=== PATIENT | female | born 1995 | race Caucasian/White ===

== ENCOUNTER 2021-03-20 23:24 | Emergency (ER) | payer BC, OTHER, MEDICAID ==
[~2021-03-20] VITALS: Ht 180.3 cm; Wt 70.0 kg
--- NOTE | 2021-03-20 23:58 | NUR ---
INITIAL PT CONTACT. PT PRESENTS TO ED C/O "NAUSEA, DIZZINESS, MUSCLES AND SHAKING ALL OVER." PT STATES SHE WAS HYPERVENTALATING AND THEN HER HANDS AND FEET WENT NUMB. PT VERY ANXIOUS AND TEARFUL IN ROOM. 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 PT ABLE TO CONVERSE APPROPRIATELY BUT LOOSES TRACK OF WHAT SHE IS SAYING AND NEEDS TO BE REMINDED OF WHAT WAS BEING SAID OR DISCUSSED. PT SITTING UPRIGHT ON GURNEY, PLACED ON CONTINUOUS MONITORING. CALL LIGHT AND PERSONAL BELONGINGS WITHIN REACH. SIGNIFICANT OTHER AT BEDSIDE. AWAITING ERP.
[2021-03-21 00:18] LABS: BASOPHILS % (AUTO) 1 % (0-1); EOSINOPHILS % (AUTO) 0 % (1-7); LYMPHOCYTES % (AUTO) 24 % (22-44); MEAN CORPUSCULAR HEMOGLOBIN 31.1 pg (27.0-34.8); MEAN CORPUSCULAR HGB CONC 33.4 g/dL (32.4-35.8); MEAN PLATELET VOLUME 8.3 fL (7.4-10.4); MONOCYTES % (AUTO) 6 % (2-9); NEUTROPHILS % (AUTO) 70 % (42-75); PLATELET COUNT 290 x10^3/uL (130-400); RED BLOOD COUNT 4.54 x10^6/uL (3.82-5.3); RED CELL DISTRIBUTION WIDTH 13.4 % (9.6-15.2)
[2021-03-21 00:29] LABS: ALBUMIN 4.1 g/dL (3.4-5.0); ANION GAP 12 mmol/L (5-15); CALCIUM 9.7 mg/dL (8.5-10.1); CHLORIDE 103 mmol/L (98-107); CREATININE 1.04 mg/dL (0.55-1.02)
[2021-03-21 00:33] LABS: TROPONIN I < 0.015 ng/mL (0.000-0.045)
[2021-03-21 00:46] LABS: FREE T4 (FREE THYROXINE) 1.38 ng/dL (0.76-1.46)
--- NOTE | 2021-03-21 01:45 | NUR ---
PT AMBULATORY WITH STEADY GAIT. PT DENIES ANY CURRENT DIZZINESS OR OTHER COMPLAINTS. ERP AWARE, AWAITING D/C
--- NOTE | 2021-03-21 01:56 | NUR ---
Patient given discharge instructions and they have confirmed that they understand the instructions. Patient ambulatory with steady gait. NAD, all questions answered appropriately, denies additional needs at this time. No personal belongings left in room after discharge.
[2021-03-21 01:57] VITALS: BP 102/63
== END 2021-03-21 01:58 | disposition home or self-care (01) ==
LOC: EDBD 23:24 → ED 23:59
DX: R42 Dizziness and giddiness (principal); R20.8 Other disturbances of skin sensation; R20.2 Paresthesia of skin; R11.0 Nausea; F17.210 Nicotine dependence, cigarettes, uncomplicated
CPT/HCPCS: 36415; 71045; 80048; 82040; 84439; 84443; 84484; 84703; 85025; 93005; 99406